=== PATIENT | male | born 1960 | race African-American/Black ===

== ENCOUNTER 2020-10-29 21:24 | Emergency (ER) | payer MEDICAID ==
[~2020-10-29] VITALS: Ht 170.2 cm; Wt 70.0 kg
[2020-10-29] MEDS ORDERED: MAGNESIUM/ALUMINUM HYDROXIDE/SIMETHICONE 30ML UDC PO STA (22:48)
[2020-10-29] MEDS ORDERED: HYDROCODONE/ACETAMINOPHEN 5/325MG TABLET PO STA (22:48)
[2020-10-29] MEDS ORDERED: ONDANSETRON 4MG ODT PO STA (22:48)
[2020-10-29] MEDS ORDERED: FAMOTIDINE 20MG TABLET PO ONE (23:00)
[2020-10-29 23:37] LABS: CHLORIDE 108 mEq/L (98-107)
[2020-10-29 23:39] LABS: HEMATOCRIT. 34.6 % (42.0-52.0); HEMOGLOBIN. 11.9 g/dL (14.0-18.0); MEAN CORPUSCULAR HEMOGLOBIN 34.7 pg (28.0-32.0); MEAN CORPUSCULAR VOLUME 100.6 fL (80.0-94.0); PLATELET 218 x1000/uL (130-400); RED BLOOD CELL COUNT 3.44 mill/uL (4.7-6.1); RED CELL DISTRIBUTION WIDTH 12.5 % (11.6-14.6)
[2020-10-29 23:47] LABS: INR 1.6; PROTHROMBIN TIME 16.1 sec (9.6-11.0)
[2020-10-29 23:54] LABS: CLARITY URINE CLEAR (CLEAR); COLOR URINE YELLOW (YELLOW); KETONES URINE 2+ (NEGATIVE); LEUKOCYTE ESTERASE URINE TRACE (NEGATIVE); NITRITE URINE POSITIVE (NEGATIVE); OCCULT BLOOD URINE NEGATIVE (NEGATIVE); PH URINE 8.5 (4.5-8.0); PROTEIN URINE NEGATIVE (NEGATIVE); SPECIFIC GRAVITY URINE 1.019 (1.005-1.030); UROBILINOGEN URINE 0.2 E.U./dL (0.2-1.0)
[2020-10-30 02:23] LABS: PLATELET ESTIMATE NORMAL
[2020-10-30] MEDS ORDERED: CEPHALEXIN 250MG CAPSULE PO ONE (02:30)
[2020-10-30] MEDS ORDERED: TOPUD MT (04:33)
[2020-10-30] MEDS ORDERED: CIPR500S3 PO (04:33)
[2020-10-30 05:30] VITALS: BP 119/62
== END 2020-10-30 05:43 | disposition home or self-care (01) ==
LOC: ER 21:24
DX: N39.0 Urinary tract infection, site not specified (principal); N20.0 Calculus of kidney; K21.9 Gastro-esophageal reflux disease without esophagitis
CPT/HCPCS: 36415; 74176; 80053; 81003; 83690; 85025; 85610; 99285; Q0162